=== PATIENT | female | born 1985 | race Caucasian/White ===

== ENCOUNTER 2017-07-21 04:50 | Inpatient (IN) | payer MEDICAID ==
[2017-07-21] MEDS ORDERED: Penicillin G Potassium 5 MILLUNITS in Sodium Chloride 0.9% 50 ML IV ONE (06:00)
[2017-07-21] MEDS ORDERED: Ondansetron 4 MG/2 ML SDV IVPUSH ONE (06:36)
[2017-07-21] MEDS ORDERED: Sodium Chloride 0.9% 10 ML Syringe FLUSH PRN (07:21)
[2017-07-21] MEDS ORDERED: fentaNYL 100 MCG/2 ML SDV IVPUSH PRN (07:21)
[2017-07-21] MEDS ORDERED: Acetaminophen 325 MG Tab PO PRN (07:21)
--- NOTE | 2017-07-21 07:31 | PCM.LDHP ---
L&D History of Present Illness - General Date of Service: 07/21/17 (labor) Admit Problem/Dx: Patient Status Order with Admit Dx/Problem 07/21/17 07:21 Patient Status [ADT] Routine Admission Diagnosis/Problem Admission Diagnosis/Problem Labor established Source of Information: Patient History Limitations: Reports: No Limitations - History of Present Illness Introduction:: This 32 year old who is 39 5/7 weeks gestation presented with contractions every 2-3 minutes. Had been keshia since 0200. NO SROM, is GBS positive. Staff reports she is dilated to 3 cm. complains of back labor. Labs: ABO O pos HIV neg Rubella Immune THC POS HGB 12.0 and PLT 333 Timing/Duration: Reports: minutes: (2-3) Location, : Reports: Abdomen, Lower back Quality: Reports: Pressure Severity: Moderate Improves with: Reports: None Worsens with: Reports: None - Related Data Allergies/Adverse Reactions: Allergies Allergy/AdvReac Type Severity Reaction Status Date / Time No Known Allergies Allergy Verified 04/16/16 07:43 Home Medications: Home Meds Folic Acid 1 cap PO DAILY 07/19/17 [History] Pediatric Multivit Comb No.42 [Flintstones] 1 each PO DAILY 07/19/17 [History] Past Medical History HEENT History: Reports: Allergic Rhinitis Cardiovascular History: Reports: None Respiratory History: Reports: None Gastrointestinal History: Reports: Cholelithiasis, GERD Genitourinary History: Reports: None [employer] MANAGER History: Reports: Endometriosis, Fibroids, , Other (See Below) : 2 Para: 1 LMP (Approximate): (JHOAN 07/21/17) Other OB/BYN History: IRREGULAR PERIODS Musculoskeletal History: Reports: Fibromyalgia, Other (See Below) Other Musculoskeletal History: LEFT KNEE PAIN Neurological History: Reports: None Psychiatric History: Reports: None Endocrine/Metabolic History: Reports: None Hematologic History: Reports: None Immunologic History: Reports: None Oncologic (Cancer) History: Reports: None Dermatologic History: Reports: None - Infectious Disease History Infectious Disease History: Reports: Chicken Pox - Past Surgical History Head Surgeries/Procedures: Reports: None Cardiovascular Surgical History: Reports: None Respiratory Surgical History: Reports: None GI Surgical History: Reports: Cholecystectomy, EGD Female Surgical History: Reports: None Endocrine Surgical History: Reports: None Neurological Surgical History: Reports: None Dermatological Surgical History: Reports: None Social & Family History - Family History Family Medical History: Noncontributory - Tobacco Use Smoking Status *Q: Never Smoker Second Hand Smoke Exposure: No - Caffeine Use Caffeine Use: Reports: None - Recreational Drug Use Recreational Drug Use: Yes Drug Use in Last 12 Months: Yes Recreational Drug Type: Reports: Marijuana/Hashish Recreational Drug Use Frequency: Daily H&P Review of Systems - Review of Systems: Review Of Systems: See Below General: Reports: No Symptoms HEENT: Reports: No Symptoms Pulmonary: Reports: No Symptoms Cardiovascular: Reports: No Symptoms Gastrointestinal: Reports: Nausea Genitourinary: Reports: No Symptoms Musculoskeletal: Reports: No Symptoms Skin: Reports: No Symptoms Psychiatric: Reports: No Symptoms Neurological: Reports: No Symptoms Hematologic/Lymphatic: Reports: No Symptoms Immunologic: Reports: No Symptoms L&D Exam - Exam Exam: See Below - Vital Signs Vital Signs: Last Vital Signs Temp 97.3 F 07/21/17 05:04 Pulse 100 07/21/17 05:04 Resp 16 07/21/17 05:04 BP 120/74 07/21/17 05:04 Pulse Ox 97 07/21/17 05:04 Weight: 256 lb - OB Specific Contraction Duration (sec): 50-60 Contraction Frequency (min): 2-3 Contraction Intensity: Moderate Movement: Active Heart Tones: Present Heart Tones per Min: 145 Heart Rate (FHR) Variability: Moderate (6-25 bmp) Presentation: Vertex - Barrios Score Barrios Score Cervix Position: Midposition Barrios Score Consistency: Soft Barrios Score Effacement: 51-70% Barrios Score Dilation: 3-4 cm Barrios Score Infant's Station: -1 ,0 Barrios Score Total: 9 - Exam General: Alert, Oriented HEENT: PERRLA, Conjunctiva Clear, EACs Clear, EOMI, Hearing Intact, Mucosa Moist & [place], Nares Patent, Normal Nasal Septum, Posterior Pharynx Clear, TMs Clear Neck: Supple, Trachea Midline Lungs: Clear to Auscultation, Normal Respiratory Effort Cardiovascular: Regular Rate, Regular Rhythm GI/Abdominal Exam: Normal Bowel Sounds, Soft, Non-Tender, Pelvis Stable Rectal Exam: Normal Exam Genitourinary: Cervical dilitation, Enlarged uterus Back Exam: Normal Inspection, Full Range of Motion Extremities: Normal Inspection, Normal Range of Motion, Non-Tender, No Pedal Edema, Normal Capillary Refill Skin: Warm, Dry, Intact Neurological: Cranial Nerves Intact, Reflexes Equal Bilateral Psychiatric: Alert, Normal Affect, Normal Mood - Patient Data Lab Results Last 24 hrs: Laboratory Results - last 24 hr 07/21/17 07/21/17 07/21/17 Range/Units 05:10 05:48 05:49 WBC 18.9 H (4.5-11.0) K/uL RBC 4.43 (3.30-5.50) M/uL Hgb 12.9 (12.0-15.0) g/dL Hct 38.5 (36.0-48.0) % MCV 87 (80-98) fL MCH 29 (27-31) pg MCHC 34 (32-36) % Plt Count 333 (150-400) K/uL Urine Color Yellow Urine Appearance Cloudy Urine pH 6.5 (4.5-8.0) Ur Specific [place] 1.015 (1.008-1.030) Urine Protein Negative (NEGATIVE) mg/dL Urine Glucose (UA) Normal (NEGATIVE) mg/dL Urine Ketones 15 H (NEGATIVE) mg/dL Urine Occult Blood Moderate (NEGATIVE) Urine Nitrite Negative (NEGATIVE) Urine Bilirubin Negative (NEGATIVE) Urine Urobilinogen Normal (NORMAL) mg/dL Ur Leukocyte Esterase Large (NEGATIVE) Urine RBC 0-5 (0-5) Urine WBC >100 H (0-5) Ur Epithelial Cells Moderate Amorphous Sediment Not seen Urine Bacteria Many Urine Mucus Not seen Urine Opiates Screen Negative (NEGATIVE) Ur Oxycodone Screen Negative (NEGATIVE) Urine Methadone Screen Negative (NEGATIVE) Ur Propoxyphene Screen Negative (NEGATIVE) Ur Barbiturates Screen Negative (NEGATIVE) Ur Tricyclics Screen Negative (NEGATIVE) Ur Phencyclidine Scrn Negative (NEGATIVE) Ur Amphetamine Screen Negative (NEGATIVE) U Methamphetamines Scrn Negative (NEGATIVE) Urine MDMA Screen Negative (NEGATIVE) U Benzodiazepines Scrn Negative (NEGATIVE) U Cocaine Metab Screen Negative (NEGATIVE) U Marijuana (THC) Screen Positive H (NEGATIVE) Result Diagrams: 07/21/17 05:48 - Problem List (1) Smoker SNOMED Code(s): 27193277 ICD Code: F17.200 - NICOTINE DEPENDENCE, UNSPECIFIED, UNCOMPLICATED Status : Acute Current Visit: Yes (2) Positive GBS test SNOMED Code(s): 0410400690276 ICD Code: B95.1 - STREPTOCOCCUS, GROUP B, CAUSING DISEASES CLASSD ELSWHR Status: Acute Current Visit: Yes (3) Normal labor SNOMED Code(s): 68193523 ICD Code: O80 - ENCOUNTER FOR FULL-TERM UNCOMPLICATED DELIVERY; Z37.9 - OUTCOME OF DELIVERY, UNSPECIFIED Status: Acute Current Visit: Yes (4) Obese SNOMED Code(s): 217350068 ICD Code: E66.9 - OBESITY, UNSPECIFIED Status: Chronic Current Visit: No Problem List Initiated/Reviewed/Updated: Yes Orders Last 24hrs: Active Orders 24 hr Category Date Time Status Patient Status [ADT] Routine ADT 07/21/17 07:21 Ordered Antiembolic Devices [RC] .Routine Care 07/21/17 07:23 Ordered Communication Order [RC] ASDIRECTED Care 07/21/17 07:21 Ordered Heart Tones [RC] PER UNIT ROUTINE Care 07/21/17 07:21 Ordered May Shower [RC] ASDIRECTED Care 07/21/17 07:21 Ordered Notify Provider Vital Signs [RC] PRN Care 07/21/17 07:21 Ordered Notify Provider [RC] PRN Care 07/21/17 07:21 Ordered OB Check [OM.PC] Click to Edit Care 07/21/17 05:05 Ordered Up ad Eunice [RC] ASDIRECTED Care 07/21/17 07:21 Ordered VTE/DVT Education [RC] Click to Edit Care 07/21/17 07:23 Ordered Vital Signs [RC] PER UNIT ROUTINE Care 07/21/17 07:21 Ordered Clear Liquid Diet [DIET] Diet 07/21/17 Lunch Ordered Acetaminophen [Tylenol] Med 07/21/17 07:21 Ordered 650 mg PO Q4H PRN Penicillin G Potassium [Pfizerpen] 2.5 millunits Med 07/21/17 11:00 Active Sodium Chloride 0.9% [Normal Saline] 50 ml IV Q4H Sodium Chloride 0.9% [Saline Flush] Med 07/21/17 07:21 Ordered 10 ml FLUSH ASDIRECTED PRN fentaNYL [Sublimaze] Med 07/21/17 07:21 Ordered 100 mcg IVPUSH Q1H PRN DVT/VTE Prophylaxis Reflex [OM.PC] Routine Oth 07/21/17 07:21 Ordered Saline Lock Insert [OM.PC] Routine Oth 07/21/17 07:21 Ordered Resuscitation Status Routine Resus Stat 07/21/17 07:21 Ordered Medication Orders Penicillin G Potassium 2.5 (millunits/ Sodium Chloride) 50 mls @ 100 mls/hr IV Q4H [facility] Assessment/Plan Comment:: 07/21/17 32 yr old 39 5/7 weeks, labor GBS positive, treatment started delay AROM until making cervical change Pain management per patient request THC positive, Social service referral Plan: Anticipate vaginal delivery
[2017-07-21] MEDS ORDERED: Lactated Ringers 1,000 ML IV ONE (08:14)
[2017-07-21] MEDS ORDERED: Ropivacaine 200 ML EPIDUR ONE (09:05)
[2017-07-21] MEDS ORDERED: Ropivacaine HCl/PF 200 ML ONE (09:25)
[2017-07-21] MEDS ORDERED: Penicillin G Potassium 2.5 MILLUNITS in Sodium Chloride 0.9% 50 ML IV SCH (10:00)
[2017-07-21] MEDS ORDERED: Ropivacaine 200 ML EPIDUR SCH (10:11)
[2017-07-21] MEDS ORDERED: ePHEDrine 50 MG/ML SDV IV PRN (10:11)
[2017-07-21] MEDS ORDERED: Naloxone 0.4 MG/ML SDV IVPUSH PRN ×2 (10:11→20:35)
[2017-07-21] MEDS ORDERED: diphenhydrAMINE 50 MG/ML SDV IVPUSH PRN (10:11)
--- NOTE | 2017-07-21 10:38 | ANES ---
DATE OF SERVICE: 07/21/2017 INDICATION: Lidya is a 32-year-old female patient of Kim Timmons, #[id number]. She is in prolonged stage II labor. I was requested by Kim Timmons to assess the patient for labor epidural. Upon arrival, I discussed with the patient her history as well as labs and procedure. There were no contraindications to labor epidural today, and after understanding the procedure, she was okay to proceed, and consent was received. DESCRIPTION OF PROCEDURE: I had her seated at the edge of the bed. Betadine prep x3 to the lumbar region, sterile drape was placed. A 1% lidocaine skin wheal as well as deep at the L3-L4 region. A 17-gauge Tuohy was placed to loss of resistance. Negative CSF, negative heme, negative paresthesia. Catheter was placed to 12 cm. Then, a test dose was given, and the catheter was then secured, placed her in a supine position, injected 12 mL of 0.2% ropivacaine and then began infusion of that same 0.2% ropivacaine. She tolerated the procedure quite well. Her vitals remained within normal limits. Please refer to nurse's notes for vital signs and neuro status, and upon completion, I discussed with the nurse the amount given. Thank you for the consult. Henry Proctor CRNA /[id number]
--- NOTE | 2017-07-21 10:39 | PCM.PNLD ---
Labor Progress Note - VS & Meds Vital Signs: Last Vital Signs Temp 96.9 F 07/21/17 07:21 Pulse 86 07/21/17 10:00 Resp 16 07/21/17 10:00 BP 130/68 07/21/17 10:00 Pulse Ox 95 07/21/17 10:00 Active Medications: Current Medications Acetaminophen (Tylenol) 650 mg PO Q4H PRN PRN Reason: Pain (Mild 1-3) and fever Diphenhydramine HCl (Benadryl) 25 mg IVPUSH Q6H PRN PRN Reason: ITCHING Ephedrine Sulfate (Ephedrine Sulfate) 5 - 10 mg IV ASDIRECTED PRN PRN Reason: Systolic BP less than 100 Fentanyl (Sublimaze) 100 mcg IVPUSH Q1H PRN PRN Reason: Pain (moderate 4-6) Penicillin G Potassium 2.5 (millunits/ Sodium Chloride) 50 mls @ 100 mls/hr IV Q4H JOSEPH Oxytocin/Sodium Chloride (Pitocin In Ns 20 Units/1,000 Ml) 20 unit in 1,000 mls @ 90 mls/hr IV TITRATE JOSEPH; 30 MUNITS/MIN PRN Reason: Protocol Ropivacaine (Naropin 0.2%) 200 mls @ 0 mls/hr EPIDUR ASDIRECTED JOSEPH; Titrate PRN Reason: Protocol Naloxone HCl (Narcan) 0.1 mg IVPUSH Q5M PRN PRN Reason: IF RESP RATE LESS THAN 6 Sodium Chloride (Saline Flush) 10 ml FLUSH ASDIRECTED PRN PRN Reason: Keep Vein Open Discontinued Medications Penicillin G Potassium 5 (millunits/ Sodium Chloride) 50 mls @ 100 mls/hr IV ONETIME ONE Stop: 07/21/17 06:29 Last Admin: 07/21/17 06:53 Dose: 100 mls/hr Penicillin G Potassium 2.5 (millunits/ Sodium Chloride) 50 mls @ 100 mls/hr IV Q4H JOSEPH Lactated Ringer's (Ringers, Lactated) 1,000 mls @ 999 mls/hr IV BOLUS ONE Stop: 07/21/17 09:14 Last Admin: 07/21/17 08:00 Dose: 999 mls/hr Ropivacaine (Naropin 0.2%) 200 mls @ as directed EPIDUR .STK-MED ONE Stop: 07/21/17 09:06 Ondansetron HCl (Zofran) 4 mg IVPUSH ONETIME ONE Stop: 07/21/17 06:37 Last Admin: 07/21/17 06:53 Dose: 4 mg - Uterine Contractions Uterine Monitoring Mode: External [place] Contraction Frequency (min): 2-4 Contraction Duration (sec): 40-50 Contraction Intensity: Moderate Uterine Resting Tone: Soft - Monitoring Monitor Mode: External Ultrasound Heart Rate (FHR) Baseline: 145 Heart Rate (FHR) Variability: Moderate (6-25 bmp) Accelerations: Present, 15x15 Decelerations: None Strip Review: Category I - Vaginal Exam Dilation (cm): 7-8 Effacement (Percent): 100 Station: 1 Cervical Position: Anterior Sterile Vaginal Exam Performed By: Kim Timmons Vaginal Exam Comment: AROM, clear - Labor Progress (Free Text) Labor Progress: epidural in place Nice progression since this morning Planning for vaginal delivery
[2017-07-21] MEDS: Penicillin G Potassium 2.5 MILLUNITS in Sodium Chloride 0.9% 50 ML IV SCH ×3 (10:51→20:18)
[2017-07-21] MEDS: Ondansetron 4 MG/2 ML SDV IVPUSH PRN ×2 (10:57→17:10)
[2017-07-21] MEDS ORDERED: fentaNYL 100 MCG/2 ML SDV ONE (12:33)
--- NOTE | 2017-07-21 12:54 | PCM.PNLD ---
Labor Progress Note - VS & Meds Vital Signs: Last Vital Signs Temp 96.9 F 07/21/17 07:21 Pulse 82 07/21/17 10:15 Resp 16 07/21/17 10:15 BP 122/73 07/21/17 10:15 Pulse Ox 93 L 07/21/17 10:15 Active Medications: Current Medications Acetaminophen (Tylenol) 650 mg PO Q4H PRN PRN Reason: Pain (Mild 1-3) and fever Diphenhydramine HCl (Benadryl) 25 mg IVPUSH Q6H PRN PRN Reason: ITCHING Ephedrine Sulfate (Ephedrine Sulfate) 5 - 10 mg IV ASDIRECTED PRN PRN Reason: Systolic BP less than 100 Fentanyl (Sublimaze) 100 mcg IVPUSH Q1H PRN PRN Reason: Pain (moderate 4-6) Penicillin G Potassium 2.5 (millunits/ Sodium Chloride) 50 mls @ 100 mls/hr IV Q4H JOSEPH Last Admin: 07/21/17 10:51 Dose: 100 mls/hr Oxytocin/Sodium Chloride (Pitocin In Ns 20 Units/1,000 Ml) 20 unit in 1,000 mls @ 90 mls/hr IV TITRATE JOSEPH; 30 MUNITS/MIN PRN Reason: Protocol Ropivacaine (Naropin 0.2%) 200 mls @ 0 mls/hr EPIDUR ASDIRECTED JOSEPH; Titrate PRN Reason: Protocol Naloxone HCl (Narcan) 0.1 mg IVPUSH Q5M PRN PRN Reason: IF RESP RATE LESS THAN 6 Ondansetron HCl (Zofran) 4 mg IVPUSH Q4H PRN PRN Reason: Nausea Last Admin: 07/21/17 10:57 Dose: 4 mg Sodium Chloride (Saline Flush) 10 ml FLUSH ASDIRECTED PRN PRN Reason: Keep Vein Open Discontinued Medications Fentanyl (Sublimaze) Confirm Administered Dose 100 mcg .ROUTE .STK-MED ONE Stop: 07/21/17 12:34 Penicillin G Potassium 5 (millunits/ Sodium Chloride) 50 mls @ 100 mls/hr IV ONETIME ONE Stop: 07/21/17 06:29 Last Admin: 07/21/17 06:53 Dose: 100 mls/hr Penicillin G Potassium 2.5 (millunits/ Sodium Chloride) 50 mls @ 100 mls/hr IV Q4H JOSEPH Lactated Ringer's (Ringers, Lactated) 1,000 mls @ 999 mls/hr IV BOLUS ONE Stop: 07/21/17 09:14 Last Admin: 07/21/17 08:00 Dose: 999 mls/hr Ropivacaine (Naropin 0.2%) 200 mls @ as directed EPIDUR .STK-MED ONE Stop: 07/21/17 09:06 Ropivacaine (Naropin 0.2%) Confirm Administered Dose 200 mls @ as directed .ROUTE .STK-MED ONE Stop: 07/21/17 09:26 Ondansetron HCl (Zofran) 4 mg IVPUSH ONETIME ONE Stop: 07/21/17 06:37 Last Admin: 07/21/17 06:53 Dose: 4 mg - Uterine Contractions Uterine Monitoring Mode: External [place] Contraction Frequency (min): 1-2 Contraction Duration (sec): 40-70 Contraction Intensity: Strong Uterine Resting Tone: Soft - Monitoring Monitor Mode: External Ultrasound Heart Rate (FHR) Baseline: 145 Heart Rate (FHR) Variability: Moderate (6-25 bmp) Accelerations: Present, 15x15 Decelerations: None Strip Review: Category I - Vaginal Exam Dilation (cm): 8-9 Effacement (Percent): 100 Station: 1 Cervical Position: Anterior Sterile Vaginal Exam Performed By: Kim Timmons Vaginal Exam Comment: Baby not descending as one would expect, more dilation then before, bloody show now, slow progress - Labor Progress (Free Text) Labor Progress: epidural bolus pitocin augmentation. Using peanut ball to helpful help with descent
[2017-07-21] MEDS ORDERED: diphenhydrAMINE 25 MG Cap PO ONE (14:05)
--- NOTE | 2017-07-21 14:08 | PCM.PNLD ---
Labor Progress Note - VS & Meds Vital Signs: Last Vital Signs Temp 96.9 F 07/21/17 07:21 Pulse 82 07/21/17 10:15 Resp 16 07/21/17 10:15 BP 122/73 07/21/17 10:15 Pulse Ox 93 L 07/21/17 10:15 Active Medications: Current Medications Acetaminophen (Tylenol) 650 mg PO Q4H PRN PRN Reason: Pain (Mild 1-3) and fever Diphenhydramine HCl (Benadryl) 25 mg IVPUSH Q6H PRN PRN Reason: ITCHING Ephedrine Sulfate (Ephedrine Sulfate) 5 - 10 mg IV ASDIRECTED PRN PRN Reason: Systolic BP less than 100 Fentanyl (Sublimaze) 100 mcg IVPUSH Q1H PRN PRN Reason: Pain (moderate 4-6) Penicillin G Potassium 2.5 (millunits/ Sodium Chloride) 50 mls @ 100 mls/hr IV Q4H JOSEPH Last Admin: 07/21/17 10:51 Dose: 100 mls/hr Oxytocin/Sodium Chloride (Pitocin In Ns 20 Units/1,000 Ml) 20 unit in 1,000 mls @ 90 mls/hr IV TITRATE JOSEPH; 30 MUNITS/MIN PRN Reason: Protocol Ropivacaine (Naropin 0.2%) 200 mls @ 0 mls/hr EPIDUR ASDIRECTED JOSEPH; Titrate PRN Reason: Protocol Naloxone HCl (Narcan) 0.1 mg IVPUSH Q5M PRN PRN Reason: IF RESP RATE LESS THAN 6 Ondansetron HCl (Zofran) 4 mg IVPUSH Q4H PRN PRN Reason: Nausea Last Admin: 07/21/17 10:57 Dose: 4 mg Sodium Chloride (Saline Flush) 10 ml FLUSH ASDIRECTED PRN PRN Reason: Keep Vein Open Discontinued Medications Fentanyl (Sublimaze) Confirm Administered Dose 100 mcg .ROUTE .STK-MED ONE Stop: 07/21/17 12:34 Penicillin G Potassium 5 (millunits/ Sodium Chloride) 50 mls @ 100 mls/hr IV ONETIME ONE Stop: 07/21/17 06:29 Last Admin: 07/21/17 06:53 Dose: 100 mls/hr Penicillin G Potassium 2.5 (millunits/ Sodium Chloride) 50 mls @ 100 mls/hr IV Q4H JOSEPH Lactated Ringer's (Ringers, Lactated) 1,000 mls @ 999 mls/hr IV BOLUS ONE Stop: 07/21/17 09:14 Last Admin: 07/21/17 08:00 Dose: 999 mls/hr Ropivacaine (Naropin 0.2%) 200 mls @ as directed EPIDUR .STK-MED ONE Stop: 07/21/17 09:06 Ropivacaine (Naropin 0.2%) Confirm Administered Dose 200 mls @ as directed .ROUTE .STK-MED ONE Stop: 07/21/17 09:26 Ondansetron HCl (Zofran) 4 mg IVPUSH ONETIME ONE Stop: 07/21/17 06:37 Last Admin: 07/21/17 06:53 Dose: 4 mg - Uterine Contractions Uterine Monitoring Mode: External [place] Contraction Frequency (min): 1.5-2 Contraction Duration (sec): 50-70 Contraction Intensity: Strong Uterine Resting Tone: Soft - Monitoring Monitor Mode: External Ultrasound Heart Rate (FHR) Baseline: 145 Heart Rate (FHR) Variability: Moderate (6-25 bmp) Accelerations: Present, 15x15 Decelerations: None Strip Review: Category I - Vaginal Exam Dilation (cm): 7-8 Effacement (Percent): 90 Station: 1 Cervical Position: Midposition Sterile Vaginal Exam Performed By: Kim Timmons Vaginal Exam Comment: Baby not descending as one would expect, more dilation then before, bloody show now, slow progress - Labor Progress (Free Text) Labor Progress: hasn't had cervical change for 4 hours. Pain not well managed. Epidural seems to be not as effect as one would like. Anesthesia have been called to assess. Currently on cervical exam cervix is swollen, 25 mg po Benadryl given.
--- NOTE | 2017-07-21 15:47 | ANES ---
DATE OF SERVICE: 07/21/2017 INDICATION: Lidya is a 32-year-old female patient of Kimswapna Timmons, #[id number]. I placed an epidural in this patient at approximately 9 o'clock this morning and initially had relief, progressively throughout the afternoon as decreasing relief. One of my partners, bolused with ropivacaine at approximately 12:30. I did receive a call at approximately 2 o'clock that epidural bolus did not work and that she is having continued pain. By the time I was able to see the patient at 1430 hours, I found the patient in significant discomfort. I assessed the catheter, it seemed to be secure in the place that I had it prior to. We discussed options and decided to remove the catheter and repeat the epidural. The catheter was removed and completely intact. DESCRIPTION OF PROCEDURE: I had her seated at the edge of the bed. Betadine prep x3 to lumbar region. Sterile drape was placed, 1% lidocaine skin wheal as well as deep at the L3- L4 region; a 17-gauge Tuohy needle was placed to loss of resistance. Negative CSF, negative heme, negative paresthesia. I inserted a catheter at 15 cm at the skin. I removed the needle, completed test dose in the catheter as before, 3 mL of 1.5% lidocaine with 1:200,000 epinephrine, negative sequelae. I secured the catheter to her back, infused 10 mL 0.2% ropivacaine and then began an infusion at 12 mL an hour of that same 0.2% ropivacaine. She tolerated the procedure quite well. Vital signs remained within normal limits throughout the procedure as well as her neurological status. Please refer to nurse's notes for vital signs and neuro status, I reported off to the nurse. Henry Proctor CRNA /[id number]
--- NOTE | 2017-07-21 17:39 | PCM.PNLD ---
Labor Progress Note - VS & Meds Vital Signs: Last Vital Signs Temp 96.1 F 07/21/17 14:50 Pulse 102 H 07/21/17 16:30 Resp 16 07/21/17 16:30 BP 103/43 L 07/21/17 16:30 Pulse Ox 97 07/21/17 16:30 Active Medications: Current Medications Acetaminophen (Tylenol) 650 mg PO Q4H PRN PRN Reason: Pain (Mild 1-3) and fever Diphenhydramine HCl (Benadryl) 25 mg IVPUSH Q6H PRN PRN Reason: ITCHING Ephedrine Sulfate (Ephedrine Sulfate) 5 - 10 mg IV ASDIRECTED PRN PRN Reason: Systolic BP less than 100 Fentanyl (Sublimaze) 100 mcg IVPUSH Q1H PRN PRN Reason: Pain (moderate 4-6) Penicillin G Potassium 2.5 (millunits/ Sodium Chloride) 50 mls @ 100 mls/hr IV Q4H JOSEPH Last Admin: 07/21/17 15:11 Dose: 100 mls/hr Oxytocin/Sodium Chloride (Pitocin In Ns 20 Units/1,000 Ml) 20 unit in 1,000 mls @ 90 mls/hr IV TITRATE JOSEPH; 30 MUNITS/MIN PRN Reason: Protocol Ropivacaine (Naropin 0.2%) 200 mls @ 0 mls/hr EPIDUR ASDIRECTED JOSEPH; Titrate PRN Reason: Protocol Last Admin: 07/21/17 09:10 Dose: 12 mls/hr, 12 mls/hr Naloxone HCl (Narcan) 0.1 mg IVPUSH Q5M PRN PRN Reason: IF RESP RATE LESS THAN 6 Ondansetron HCl (Zofran) 4 mg IVPUSH Q4H PRN PRN Reason: Nausea Last Admin: 07/21/17 17:10 Dose: 4 mg Sodium Chloride (Saline Flush) 10 ml FLUSH ASDIRECTED PRN PRN Reason: Keep Vein Open Discontinued Medications Diphenhydramine HCl (Benadryl) 25 mg PO ONETIME ONE Stop: 07/21/17 14:06 Last Admin: 07/21/17 14:18 Dose: 25 mg Fentanyl (Sublimaze) Confirm Administered Dose 100 mcg .ROUTE .STK-MED ONE Stop: 07/21/17 12:34 Penicillin G Potassium 5 (millunits/ Sodium Chloride) 50 mls @ 100 mls/hr IV ONETIME ONE Stop: 07/21/17 06:29 Last Admin: 07/21/17 06:53 Dose: 100 mls/hr Penicillin G Potassium 2.5 (millunits/ Sodium Chloride) 50 mls @ 100 mls/hr IV Q4H JOSEPH Lactated Ringer's (Ringers, Lactated) 1,000 mls @ 999 mls/hr IV BOLUS ONE Stop: 07/21/17 09:14 Last Admin: 07/21/17 08:00 Dose: 999 mls/hr Ropivacaine (Naropin 0.2%) 200 mls @ as directed EPIDUR .STK-MED ONE Stop: 07/21/17 09:06 Ropivacaine (Naropin 0.2%) Confirm Administered Dose 200 mls @ as directed .ROUTE .STK-MED ONE Stop: 07/21/17 09:26 Ondansetron HCl (Zofran) 4 mg IVPUSH ONETIME ONE Stop: 07/21/17 06:37 Last Admin: 07/21/17 06:53 Dose: 4 mg - Uterine Contractions Uterine Monitoring Mode: External [place] Contraction Frequency (min): 1-2 Contraction Duration (sec): 50-80 Contraction Intensity: Strong Uterine Resting Tone: Soft - Monitoring Monitor Mode: External Ultrasound Heart Rate (FHR) Baseline: 145 Heart Rate (FHR) Variability: Moderate (6-25 bmp) Accelerations: Present, 15x15 Decelerations: None Strip Review: Category I - Vaginal Exam Dilation (cm): 9.5 Effacement (Percent): 100 Station: 1 Cervical Position: Anterior Sterile Vaginal Exam Performed By: Kim Timmons Vaginal Exam Comment: No change and baby hasn't descended - Labor Progress (Free Text) Labor Progress: Arrested labor, no significant cervical change since 1030 this morning. Pain management has been an issue, good epidural placement but continues to have pain. Also has severe reflux Plan Proceed to c section for arrested first stage of labor. Discussed options and concerns with aptient and family, they are agreeable
[2017-07-21] MEDS ORDERED: cefOXitin 1 GM Vial ONE (17:45)
[2017-07-21] MEDS: Oxytocin 10 Units/1 ML SDV ONE ×2 (18:05→18:40)
[2017-07-21] MEDS ORDERED: Oxytocin 10 Units/1 ML SDV ONE (18:20)
[2017-07-21] MEDS ORDERED: Lactated Ringers 1,000 ML ONE (18:35)
[2017-07-21] MEDS ORDERED: Sodium Chloride 0.9% 10 ML ONE (18:41)
[2017-07-21] MEDS ORDERED: cefOXitin 2 GM Vial ONE (18:41)
[2017-07-21] MEDS ORDERED: Ondansetron 4 MG/2 ML SDV ONE (19:08)
[2017-07-21] MEDS ORDERED: HYDROmorphone/Normal Saline 15 MG/30 ML PCA IV PRN (20:35)
[2017-07-21] MEDS ORDERED: hydrOXYzine HCl 100 MG/2 ML SDV IM PRN (20:38)
[2017-07-21] MEDS: Dextrose 5%-Lactated Ringers 1,000 ML IV SCH (22:00)
[2017-07-21] MEDS: Acetaminophen 500 MG Tab PO SCH (23:49)
[2017-07-21] MEDS: cefOXitin 2 GM in Sodium Chloride 0.9% 50 ML IV SCH (23:49)
[2017-07-22] MEDS: Ondansetron 4 MG/2 ML SDV IVPUSH PRN ×2 (00:59→09:08)
[2017-07-22] MEDS: Penicillin G Potassium 2.5 MILLUNITS in Sodium Chloride 0.9% 50 ML IV SCH (01:24)
[2017-07-22] MEDS: cefOXitin 2 GM in Sodium Chloride 0.9% 50 ML IV SCH ×3 (03:58→16:18)
[2017-07-22] MEDS: Acetaminophen 500 MG Tab PO SCH ×4 (03:59→22:04)
[2017-07-22] MEDS: Dextrose 5%-Lactated Ringers 1,000 ML IV SCH (05:14)
[2017-07-22] MEDS ORDERED: Naloxone 0.4 MG/ML SDV IV PRN (07:21)
[2017-07-22] MEDS ORDERED: Dextrose 5%-Lactated Ringers 1,000 ML IV SCH (07:30)
[2017-07-22] MEDS: Docusate Sodium 100 MG Cap PO SCH ×2 (09:00→20:37)
[2017-07-22] MEDS: Ibuprofen 600 MG Tab PO PRN ×2 (11:04→23:44)
[2017-07-22] MEDS ORDERED: Acetaminophen/oxyCODONE 325-5 MG Tab PO PRN (20:01)
[2017-07-23] MEDS: oxyCODONE 5 MG Tab PO PRN ×6 (01:13→23:31)
[2017-07-23] MEDS: Acetaminophen 500 MG Tab PO SCH ×4 (05:43→22:03)
[2017-07-23] MEDS ORDERED: Magnesium Hydroxide 400 MG/5 ML Susp 30 ML Cup PO ONE (06:44)
[2017-07-23] MEDS ORDERED: Bisacodyl 5 MG Tab PO ONE (06:44)
[2017-07-23] MEDS: Docusate Sodium 100 MG Cap PO SCH ×2 (08:00→22:03)
--- NOTE | 2017-07-23 08:07 | PN ---
DATE OF SERVICE: 07/23/2017 SUBJECTIVE: Lidya is postop day #2 following a section. She states her pain is controlled. She has been up ambulating, has no other questions or concerns. REVIEW OF SYSTEMS: Remainder of review of systems negative for any pertinent positives and negatives. OBJECTIVE: GENERAL: Lidya Godwin is a 32-year-old female. She is alert and oriented, holding the baby. VITAL SIGNS: TPR 97.8, 73, 16. Blood pressure 120/68. HEENT: Negative. NECK: Supple. HEART: Regular rate and rhythm. LUNGS: Clear. ABDOMEN: Dressing dry and intact. Abdominal binder is on. EXTREMITIES: Without peripheral edema and no calf tenderness. ASSESSMENT: section for term with arrested labor, date 07/21/2017. PLAN: 1. May shower. 2. Milk of Magnesia 30 mL now. 3. Dulcolax 2 tabs 1 hour after Milk of Mag. 4. Discontinue Accu-Cheks. 5. Good pulmonary toilet. 6. Plan discharge in a.. Mira Coyle PA-C /[id number]
[2017-07-23] MEDS: Ibuprofen 600 MG Tab PO PRN ×2 (14:20→20:26)
[2017-07-24] MEDS: oxyCODONE 5 MG Tab PO PRN ×2 (03:43→08:10)
[2017-07-24] MEDS: Acetaminophen 500 MG Tab PO SCH ×2 (03:43→10:13)
[2017-07-24] MEDS: Ibuprofen 600 MG Tab PO PRN (05:47)
[2017-07-24 07:38] VITALS: BP 111/60
[2017-07-24] MEDS: Docusate Sodium 100 MG Cap PO SCH (08:22)
--- NOTE | 2017-07-24 08:43 | DISCH ---
ADMISSION DIAGNOSES: 1. Term . 2. Nicotine addiction. 3. Positive GBS test. 4. Dysthymic disorder. 5. GERD. 6. Obese. DISCHARGE DIAGNOSIS: section for term with arrest of labor, date 07/21/2017. HISTORY: Lidya Godwin is a 32-year-old female who presented to [facility] of [facility] and was in labor. She did not progress. After preoperative evaluation and discussion of possible surgical risks and complications, she wished to proceed with surgical procedure. HOSPITAL COURSE: Lidya had her with delivery of a viable baby boy on 07/21/2017. She had no complications. On postop day #1, she was started on a regular diet. IV rate was decreased. On postop day #2, she was able to shower. She was given bowel stimulation and on postop day #3, her pain was controlled. Activity was good. She was able to be discharged to home. PHYSICAL EXAMINATION: GENERAL: Lidya Godwin is a 32-year-old female. VITAL SIGNS: Height is 5 feet, 6.93 inches. Weight is 256 pounds. TPR 97.8, 67, 18, blood pressure 111/60. HEENT: Negative. NECK: Supple. HEART: Regular rate and rhythm. LUNGS: Clear. ABDOMEN: Soft, nontender. Aquacel dressing remains on and will be removed by nursing staff. If Steri-Strips do come off, they will be replaced. EXTREMITIES: Negative for any calf tenderness. DISPOSITION: Discharged to home. CONDITION: Stable and improving. FOLLOWUP APPOINTMENT: Mira Coyle PA-C, on 08/04/2017 at 11:00 a.m. MEDICATIONS: 1. New prescriptions; Tylenol Extra Strength 1000 mg q.6 hours, scheduled every 6 hours for one week, then p.r.n. 2. Colace 100 mg oral twice daily #60. 3. Ibuprofen 600 mg oral q.6 hours #40. 4. Milk of Mag 2 were sent home with patient to take one daily p.r.n. constipation. 5. Oxycodone 5 mg take 1-2 every 4 hours p.r.n. pain #30. 6. She is to resume her home medication of folic acid 1 daily and pediatric multivitamin Flintstones one daily. DISCHARGE DIET: Usual diet as tolerated, drink 8-10 glasses of water a day. ACTIVITY AND DISCHARGE INSTRUCTIONS: No lifting greater than baby and car seat for 6 weeks[address] Driving, do not drive for 2 weeks or while on pain medication. Shower/bathing, may shower. Notify provider if any fever, increased pain, nausea, and/or vomiting. Keep site clean and dry. Use incentive spirometer 10 times every hour while awake.
[2017-07-24] MEDS ORDERED: Magnesium Hydroxide 400 MG/5 ML Susp 30 ML Cup PO ONE (09:00)
--- NOTE | 2017-07-24 12:55 | PN ---
DATE OF SERVICE: 07/22/2017 The patient has been afebrile with stable vital signs. A single blood sugar obtained overnight was 105. We will check a couple more. If they are not that significantly elevated, we will discontinue the Accu-Cheks. Otherwise, urine output has been good. Labs look satisfactory with hemoglobin stable at 11.3. The plan will be to back down the IV rate. We will begin a full liquid diet and advance to regular as tolerated. Discontinue Mijares catheter, add some Colace for stool softener, and otherwise maximize activity and work with pulmonary toilet. Conrad Sierra MD /[id number]
--- NOTE | 2017-07-26 21:33 | OR ---
DATE OF PROCEDURE: 07/21/2017 PREOPERATIVE DIAGNOSIS: Term with failure to progress. POSTOPERATIVE DIAGNOSIS: Term with failure to progress. OPERATIVE PROCEDURE: section (99548). ANESTHESIA: Epidural. BEHAVIORAL SPECIALIST: Kim Timmons CNM INDICATION FOR PROCEDURE: This is a 32-year-old presenting in active labor at this point. She initially progressed up to dilation of 8 cm around 9 o'clock, but since that time has not progressed to any further extent. The plan at this point is to proceed with a section. Potential risks of the procedure including bleeding, infection, injury to mother and/or baby as well as the remote possibility of cardiopulmonary, septic, or hemorrhagic complications leading to were discussed, and the patient wishes to proceed. DETAILS OF PROCEDURE: The patient was taken to the operating room, and after spinal anesthetic was placed, she was positioned with a roll underneath the right hip. A Mijares catheter had been inserted, and the abdomen prepped and draped. A transverse Pfannenstiel incision was made and carried down through the skin and subcutaneous tissue, and through the rectus sheath. Subrectus sheath flaps were then raised superiorly and inferiorly, and the midline peritoneum divided. Peritoneal reflection of the bladder on uterus was then divided and the bladder reflected downward. A transverse lower uterine segment incision was made and a viable male was delivered through vertex presentation. The position of the baby was occiput posterior, accounting for the failure to progress. The cord was clamped and cut and routine care given off the field per Kim Timmons. IV and intrauterine oxytocin was given along with IV and good uterine contractions were noted. The placental delivery was unremarkable. The uterus was then closed with 2 layers of 2-0 Vicryl stitch as was the peritoneal reflection of the bladder on the uterus. Midline peritoneum and anterior rectus sheath were then both closed with #2 Vicryl stitch, and the skin closed with a 4-0 Vicryl subcuticular stitch. Dressing was applied. The patient was taken to the recovery room in a satisfactory condition. There were no evident complications. Conrad Sierra MD /[id number]
== END 2017-07-24 11:27 | disposition home or self-care (01) | DRG 765 ==
LOC: JP.OBCHECK 04:50 → JP.OB 05:50 → OBSVTOIN 18:38 → JP.MS 19:40
PROVIDERS: ADMIT Nurse Practitioner Family; ATTEND Surgery
PROC: 10D00Z1 Extraction of Products of Conception, Low, Open Approach (ICD-10-PCS; principal; 2017-07-21)
PROC: 10907ZC Drainage of Amniotic Fluid, Therapeutic from Products of Conception, Via Natural or Artificial Opening (ICD-10-PCS; 2017-07-21)
PROC: 00HU33Z Insertion of Infusion Device into Spinal Canal, Percutaneous Approach (ICD-10-PCS; 2017-07-21)
PROC: 00HU33Z Insertion of Infusion Device into Spinal Canal, Percutaneous Approach (ICD-10-PCS; 2017-07-21)
DX: O62.2 Other uterine inertia (principal); O99.324 Drug use complicating childbirth; O99.824 Streptococcus B carrier state complicating childbirth; F12.90 Cannabis use, unspecified, uncomplicated; O99.334 Smoking (tobacco) complicating childbirth; O99.214 Obesity complicating childbirth; O99.62 Diseases of the digestive system complicating childbirth; O99.344 Other mental disorders complicating childbirth; Z3A.39 39 weeks gestation of pregnancy; Z37.0 Single live birth; K21.9 Gastro-esophageal reflux disease without esophagitis; F32.9 Major depressive disorder, single episode, unspecified; O64.0XX0 Obstructed labor due to incomplete rotation of fetal head, not applicable or unspecified
CPT/HCPCS: 36415; 59409; 80305; 81001; 82962; 85027; 88307; 94762; 99211; A9270-GY; J0694; J1170; J2405; J2540; J2590; J2795; J3010; J3410; J7042; J7050; J7120

== ENCOUNTER 2017-09-18 07:54 | Day surgery (SDC) | payer MEDICAID ==
[2017-09-18] MEDS ORDERED: Propofol 200 MG/20 ML SDV ONE (08:06)
[2017-09-18] MEDS ORDERED: Midazolam 1 MG/ML 2 ML SDV ONE (08:06)
[2017-09-18] MEDS ORDERED: fentaNYL 100 MCG/2 ML SDV ONE (08:06)
[2017-09-18] MEDS ORDERED: Sodium Chloride 0.9% 1,000 ML IV SCH (08:30)
[2017-09-18 10:43] VITALS: BP 100/64
--- NOTE | 2017-09-19 08:25 | OR ---
DATE OF PROCEDURE: 09/18/2017 PROCEDURE: EGD. FINDINGS: Inflammation consistent with reflux at the GE junction. PATHOLOGY: Biopsy at GE junction. COMPLICATIONS: None. PROOF SORTER: None. ANESTHESIA: MAC. PREOPERATIVE DIAGNOSIS: Epigastric pain. POSTOPERATIVE DIAGNOSIS: Epigastric pain. RISKS: Risks, benefits, alternatives, and limitations including, but not limited to infection, bleeding, and perforation. PROCEDURE IN DETAIL: The patient was placed in left lateral decubitus position. EGD scope was introduced and advanced atraumatically to the second part of the duodenum. No ulceration. On retroflexed, no hiatal hernia. Inflammation at GE junction consistent with reflux disease. This was biopsied in all 4 quadrants. No other abnormalities noted in the stomach. No ulcers. No gastritis. The esophagus was normal. The patient tolerated the procedure well. Samy Márquez MD /[id number]
== END 2017-09-18 10:55 | disposition home or self-care (01) ==
LOC: JP.SDS 07:54
PROVIDERS: ATTEND Surgery
DX: R10.13 Epigastric pain (principal); K21.9 Gastro-esophageal reflux disease without esophagitis; F17.200 Nicotine dependence, unspecified, uncomplicated
CPT/HCPCS: 43239; J2704; J3010; J7040; 88305; J2250

== ENCOUNTER 2017-10-14 08:55 | Day surgery (SDC) | payer MEDICAID ==
[2017-10-14] MEDS ORDERED: Sodium Chloride 0.9% 1,000 ML IV SCH (09:30)
[2017-10-14] MEDS ORDERED: Midazolam 1 MG/ML 2 ML SDV ONE (09:53)
[2017-10-14] MEDS ORDERED: fentaNYL 100 MCG/2 ML SDV ONE (09:53)
[2017-10-14] MEDS ORDERED: Propofol 200 MG/20 ML SDV ONE ×2 (09:54→10:12)
[2017-10-14 11:52] VITALS: BP 113/66
--- NOTE | 2017-10-14 13:07 | OR ---
DATE OF PROCEDURE: 10/14/2017 PROCEDURE: Placement of Quinn pH monitor. COMPLICATIONS: None. FINAL ASSEMBLY AND PACKING SUPERVISOR: None. ANESTHESIA: MAC. PREOPERATIVE DIAGNOSIS: Gastroesophageal reflux disease. POSTOPERATIVE DIAGNOSIS: Gastroesophageal reflux disease. RISKS: Risks, benefits, alternatives, and limitations including, but not limited to infection, bleeding, and perforation along with epigastric pain were explained to the patient, who wished to proceed. PROCEDURE IN DETAIL: The patient was placed in left lateral decubitus position. The EGD scope was introduced and advanced atraumatically in the stomach. The Z-line was measured at 34 cm and measuring 6 cm proximal to this, the pH probe would be placed at that location. The scope was then removed. The pH probe was advanced with the device contacting the tongue. This was gently advanced without resistance. Once in place, vacuum was applied. The safety catch was removed. The button was flipped, then fired, and twisted. The carrier was removed without any abnormality. The scope was introduced and correct placement was noted. The procedure was completed. The patient tolerated the procedure well. Samy Márquez MD /[id number]
== END 2017-10-14 12:00 | disposition home or self-care (01) ==
LOC: JP.SDS 08:55
PROVIDERS: ATTEND Surgery
DX: K21.9 Gastro-esophageal reflux disease without esophagitis (principal); F17.210 Nicotine dependence, cigarettes, uncomplicated; E66.9 Obesity, unspecified
CPT/HCPCS: 43235; 81025; J2250; J2704; J3010

== ENCOUNTER 2017-11-13 20:27 | Inpatient (IN) | payer MEDICAID ==
[2017-11-13] MEDS ORDERED: HYDROmorphone 0.5 MG/0.5 ML Syringe IM ONE (20:28)
[2017-11-13] MEDS ORDERED: Ondansetron 4 MG/2 ML SDV IVPUSH ONE (20:58)
[2017-11-13] MEDS ORDERED: HYDROmorphone 0.5 MG/0.5 ML Syringe IVPUSH ONE (20:59)
[2017-11-13] MEDS ORDERED: Sodium Chloride 0.9% 1,000 ML IV SCH (21:00)
--- NOTE | 2017-11-13 21:02 | EDM.PDOC ---
ED HPI GENERAL MEDICAL PROBLEM - General Chief Complaint: Abdominal Pain Stated Complaint: RIGHT LOWER ABDOMINAL PAIN Time Seen by Provider: 11/13/17 20:59 Source of Information: Reports: Patient History Limitations: Reports: No Limitations - History of Present Illness INITIAL COMMENTS - FREE TEXT/NARRATIVE: pt arrived with severe rt lower abdomanal pain. this started about noon today and has gotten progessively worse. She has vomited 4 times. She has had 2 loose stools. She has had bad cramps. Onset: Today Duration: Hour(s): Location: Reports: Abdomen Associated Symptoms: Reports: Fever/Chills, Nausea/Vomiting Right Lower Abdomen Pain Score (Numeric/FACES): 9 - Related Data Allergies Allergy/AdvReac Type Severity Reaction Status Date / Time No Known Allergies Allergy Verified 11/13/17 20:47 Home Meds: Home Meds Norethindrone 0.35 mg PO DAILY 09/16/17 [History] Past Medical History HEENT History: Reports: Allergic Rhinitis, Epistaxis Cardiovascular History: Reports: Heart Murmur, Other (See Below) Other Cardiovascular History: "slight heart murmur during " Respiratory History: Reports: None Gastrointestinal History: Reports: Cholelithiasis, GERD Genitourinary History: Reports: None WHIP OPERATOR History: Reports: Endometriosis, Fibroids, , Other (See Below) Other WHIP OPERATOR History: IRREGULAR PERIODS Musculoskeletal History: Reports: Fibromyalgia, Other (See Below) Other Musculoskeletal History: LEFT KNEE PAIN Neurological History: Reports: None Psychiatric History: Reports: None Endocrine/Metabolic History: Reports: Obesity/BMI 30+ Hematologic History: Reports: None Immunologic History: Reports: None Oncologic (Cancer) History: Reports: None Dermatologic History: Reports: None - Infectious Disease History Infectious Disease History: Reports: Chicken Pox - Past Surgical History Head Surgeries/Procedures: Reports: None Respiratory Surgical History: Reports: None GI Surgical History: Reports: Cholecystectomy, EGD Female Surgical History: Reports: Section Neurological Surgical History: Reports: None Musculoskeletal Surgical History: Reports: Arthroscopic Knee Dermatological Surgical History: Reports: None Social & Family History - Family History Family Medical History: Noncontributory - Tobacco Use Smoking Status *Q: Current Every Day Smoker Years of Tobacco use: 10 Packs/Tins Daily: 0.5 - Caffeine Use Caffeine Use: Reports: None - Recreational Drug Use Recreational Drug Use: No ED ROS GENERAL - Review of Systems Review Of Systems: See Below Constitutional: Reports: Chills, Malaise, Weakness, Diaphoresis HEENT: Reports: No Symptoms Respiratory: Reports: No Symptoms Cardiovascular: Reports: No Symptoms Endocrine: Reports: No Symptoms GI/Abdominal: Reports: Abdominal Pain, Diarrhea, Nausea, Vomiting : Reports: No Symptoms Musculoskeletal: Reports: No Symptoms Skin: Reports: No Symptoms Neurological: Reports: No Symptoms ED EXAM, GI/ABD - Physical Exam Exam: See Below Text/Narrative:: pt arrived with marked pain in the rt lower abdoman. She has vomited a number of times today. She has had some chills. Exam Limited By: No Limitations General Appearance: Alert, Anxious, Moderate Distress Eyes: Bilateral: Normal Appearance, EOMI Ears: Normal TMs Nose: Normal Inspection Throat/Mouth: Normal Inspection Head: Atraumatic Neck: Normal Inspection Respiratory/Chest: No Respiratory Distress Cardiovascular: Regular Rate, Rhythm GI/Abdominal Exam: Guarding, Tender (Female) Exam: Deferred Rectal (Female) Exam: Deferred Back Exam: Normal Inspection Extremities: Normal Inspection Neurological: Alert, Oriented, Normal Cognition Course - Vital Signs Last Recorded V/S: Last Vital Signs Temp 36.7 C 11/14/17 13:53 Pulse 87 11/14/17 13:53 Resp 16 11/14/17 13:53 BP 102/62 11/14/17 13:53 Pulse Ox 96 11/14/17 13:53 - Orders/Labs/Meds Labs: Laboratory Tests 11/13/17 11/13/17 11/13/17 Range/Units 20:54 20:54 20:54 WBC 20.9 H (4.5-11.0) K/uL RBC 4.78 (3.30-5.50) M/uL Hgb 14.3 D (12.0-15.0) g/dL Hct 42.1 (36.0-48.0) % MCV 88 (80-98) fL MCH 30 (27-31) pg MCHC 34 (32-36) % Plt Count 387 (150-400) K/uL Neut % (Auto) 88 H (36-66) % Lymph % (Auto) 6 L (24-44) % [place] % (Auto) 5 (2-6) % Eos % (Auto) 1 L (2-4) % Baso % (Auto) 0 (0-1) % Sodium 135 L (140-148) mmol/L Potassium 4.0 (3.6-5.2) mmol/L Chloride 100 (100-108) mmol/L Carbon Dioxide 24 (21-32) mmol/L Anion Gap 15.0 H (5.0-14.0) mmol/L BUN 9 (7-18) mg/dL Creatinine 0.7 (0.6-1.0) mg/dL Est Cr Clr Drug Dosing 114.28 mL/min Estimated GFR (MDRD) > 60 (>60) Glucose 111 H (74-106) mg/dL Calcium 9.1 (8.5-10.1) mg/dL Total Bilirubin 0.7 D (0.2-1.0) mg/dL AST 16 (15-37) U/L ALT 31 (12-78) U/L Alkaline Phosphatase 105 (46-116) U/L C-Reactive Protein 1.00 H (0.0-0.3) mg/dL Total Protein 7.7 (6.4-8.2) g/dL Albumin 4.0 (3.4-5.0) g/dL Globulin 3.7 H (2.3-3.5) g/dL Albumin/Globulin Ratio 1.1 L (1.2-2.2) Meds: Medications Discontinued Medications Generic Name Dose Route Start Last Admin Trade Name Freq PRN Reason Stop Dose Admin Hydrocodone Bitart/Acetaminophen 1 - 2 tab 11/14/17 13:08 Meridian 325-5 Mg PO Q4H PRN Pain Bupivacaine HCl Confirm 11/14/17 07:08 11/14/17 11:03 Marcaine 0.5% Administered 11/14/17 07:09 40 ml Dose Administration 50 ml .ROUTE .STK-MED ONE Dexamethasone Confirm 11/14/17 07:20 Dexamethasone Administered 11/14/17 07:21 Dose 4 mg .ROUTE .STK-MED ONE Diphenhydramine HCl 25 - 50 mg 11/13/17 23:06 Benadryl IVPUSH Q4H PRN Itching Diphenhydramine HCl 25 - 50 mg 11/13/17 23:07 Benadryl PO Q4H PRN Itching Fentanyl 10 - 30 mcg 11/13/17 23:10 11/13/17 23:41 Sublimaze IVPUSH 30 mcg Q1H PRN Administration Pain (severe 7-10) Fentanyl Confirm 11/14/17 07:19 Sublimaze Administered 11/14/17 07:20 Dose 250 mcg .ROUTE .STK-MED ONE Glycopyrrolate Confirm 11/14/17 07:20 Robinul Administered 11/14/17 07:21 Dose 1 mg .ROUTE .STK-MED ONE Hydromorphone HCl 0.5 mg 11/13/17 20:28 11/13/17 21:11 Dilaudid IM 11/13/17 20:29 0.5 mg ONETIME ONE Administration Hydromorphone HCl 0.5 mg 11/13/17 20:59 11/13/17 21:09 Dilaudid IVPUSH 11/13/17 21:00 0.5 mg ONETIME ONE Administration Hydromorphone HCl 0 mg 11/14/17 00:09 11/14/17 00:45 Dilaudid Guide Delegate 15 Mg In Ns 30 Ml IV 15 mg ASDIRECTED PRN Administration Pain Protocol Hydroxyzine HCl 100 mg 11/14/17 09:30 11/14/17 13:18 Vistaril IM 11/14/17 09:31 Not Given ONETIME ONE Hydroxyzine HCl 100 mg 11/14/17 09:30 Vistaril IM 11/14/17 09:31 .STK-MED ONE Sodium Chloride 1,000 mls @ 999 mls/hr 11/13/17 21:00 11/13/17 21:08 Normal Saline IV 999 mls/hr ASDIRECTED JOSEPH Administration Sodium Chloride 80 mls @ 3 mls/sec 11/13/17 21:30 11/13/17 21:38 Normal Saline IV 3 mls/sec ASDIRECTED JOSEPH Administration Piperacillin Sod/Tazobactam 100 mls @ 200 mls/hr 11/13/17 23:55 11/14/17 00: 07 Sod 4.5 gm/ Sodium Chloride IV 200 mls/hr Q8H JOSEPH Administration Promethazine HCl 12.5 mg/ 50.5 mls @ 200 mls/hr 11/13/17 23:04 Sodium Chloride IV Q8H PRN Nausea/Vomiting Sodium Chloride 1,000 mls @ 125 mls/hr 11/13/17 23:15 11/14/17 08:10 Normal Saline IV 125 mls/hr ASDIRECTED JOSEPH Administration Piperacillin/Tazobactam/ 100 mls @ 200 mls/hr 11/14/17 08:00 11/14/17 15:48 Dextrose 4.5 gm/ Premix IV 200 mls/hr Q8H JOSEPH Administration Iopamidol 150 ml 11/13/17 21:30 11/13/17 21:38 Isovue-300 (61%) IV 150 ml . DIRECTED JOSEPH Administration Morphine Sulfate 1 - 3 mg 11/13/17 23:09 Morphine IVPUSH Q1H PRN Pain Naloxone HCl 0.4 mg 11/14/17 00:09 Narcan IVPUSH Q2M PRN Respiratory Distress Neostigmine Methylsulfate Confirm 11/14/17 07:20 Neostigmine Administered 11/14/17 07:21 Dose 5 mg .ROUTE .STK-MED ONE Ondansetron HCl 4 mg 11/13/17 20:58 11/13/17 21:09 Zofran IVPUSH 11/13/17 20:59 4 mg ONETIME ONE Administration Ondansetron HCl 4 mg 11/13/17 23:15 11/14/17 00:31 Zofran IVPUSH 4 mg Q8H JOSEPH Administration Ondansetron HCl 4 mg 11/14/17 08:00 Zofran IVPUSH Q8H JOSEPH Ondansetron HCl 4 mg 11/14/17 08:00 11/14/17 15:06 Zofran IVPUSH Not Given 0800,1500,2300 [facility] Ondansetron HCl Confirm 11/14/17 07:20 Zofran Administered 11/14/17 07:21 Dose 4 mg .ROUTE .STK-MED ONE Propofol Confirm 11/14/17 07:20 Diprivan 20 Ml Administered 11/14/17 07:21 Dose 200 mg .ROUTE .STK-MED ONE Rocuronium [place] Confirm 11/14/17 07:20 Zemuron Administered 11/14/17 07:21 Dose 50 mg .ROUTE .STK-MED ONE Scopolamine 1.5 mg 11/13/17 23:03 Transderm-Scop TRDERM Q72H PRN Nausea Sodium Chloride 10 ml 11/13/17 21:20 11/13/17 21:38 Saline Flush FLUSH 10 ml ASDIRECTED PRN Administration Keep Vein Open Succinylcholine Chloride Confirm 11/14/17 07:20 Quelicin Administered 11/14/17 07:21 Dose 200 mg .ROUTE .STK-MED ONE Sugammadex Sodium Confirm 11/14/17 09:08 Bridion Administered 11/14/17 09:09 Dose 200 mg .ROUTE .STK-MED ONE - Re-Assessments/Exams Free Text/Narrative Re-Assessment/Exam: 11/13/17 21:06 pt was found to have a elevated wbc. She is very tender in the rt lower abdoman. A cat scan of the abdoman was obtained. crp was 1.oo11/13/17 21:56 11/13/17 22:06 cat scan shows acute appendicitis 11/15/17 07:37 Departure - Departure Time of Disposition: 22:06 Disposition: Admitted As Inpatient 68 Condition: Fair Clinical Impression: Acute appendicitis - Discharge Information
[2017-11-13] MEDS ORDERED: Sodium Chloride 0.9% 10 ML Syringe FLUSH PRN (21:20)
[2017-11-13] MEDS ORDERED: Sodium Chloride 0.9% 80 ML IV SCH (21:30)
[2017-11-13] MEDS ORDERED: Iopamidol 612 MG/ML 150 ML Bottle IV SCH (21:30)
[2017-11-13] MEDS ORDERED: Scopolamine 1.5 MG Transdermal Patch TRDERM PRN (23:03)
[2017-11-13] MEDS ORDERED: Promethazine 12.5 MG in Sodium Chloride 0.9% 50 ML IV PRN (23:04)
[2017-11-13] MEDS ORDERED: diphenhydrAMINE 50 MG/ML SDV IVPUSH PRN (23:06)
[2017-11-13] MEDS ORDERED: diphenhydrAMINE 25 MG Cap PO PRN (23:07)
[2017-11-13] MEDS ORDERED: Morphine 4 MG/ML Syringe IVPUSH PRN (23:09)
[2017-11-13] MEDS ORDERED: fentaNYL 100 MCG/2 ML SDV IVPUSH PRN (23:10)
[2017-11-13] MEDS ORDERED: Ondansetron 4 MG/2 ML SDV IVPUSH SCH (23:15)
[2017-11-13] MEDS: Sodium Chloride 0.9% 1,000 ML IV SCH (23:36)
[2017-11-13] MEDS ORDERED: Piperacillin/Tazobactam 4.5 GM in Sodium Chloride 0.9% 100 ML IV SCH (23:55)
[2017-11-14] MEDS ORDERED: HYDROmorphone/Normal Saline 15 MG/30 ML PCA IV PRN (00:09)
[2017-11-14] MEDS ORDERED: Naloxone 0.4 MG/ML SDV IVPUSH PRN (00:09)
[2017-11-14] MEDS ORDERED: Bupivacaine 0.5% 50 ML MDV ONE (07:08)
[2017-11-14] MEDS ORDERED: fentaNYL 250 MCG/5 ML SDV ONE (07:19)
[2017-11-14] MEDS ORDERED: Rocuronium 50 MG/5 ML Vial ONE (07:20)
[2017-11-14] MEDS ORDERED: Dexamethasone 4 MG/ML SDV ONE (07:20)
[2017-11-14] MEDS ORDERED: Glycopyrrolate 0.2 MG/ML 5 ML MDV ONE (07:20)
[2017-11-14] MEDS ORDERED: Neostigmine Methylsulfate 1 MG/ML 5 ML Syringe ONE (07:20)
[2017-11-14] MEDS ORDERED: Ondansetron 4 MG/2 ML SDV ONE (07:20)
[2017-11-14] MEDS ORDERED: Propofol 200 MG/20 ML SDV ONE (07:20)
[2017-11-14] MEDS ORDERED: Succinylcholine 200 MG/10 ML MDV ONE (07:20)
[2017-11-14] MEDS ORDERED: Ondansetron 4 MG/2 ML SDV IVPUSH SCH (08:00)
[2017-11-14] MEDS ORDERED: Piperacillin/Tazobactam 4.5 GM in Sodium Chloride 0.9% 100 ML IV SCH (08:00)
[2017-11-14] MEDS: Sodium Chloride 0.9% 1,000 ML IV SCH (08:10)
[2017-11-14] MEDS ORDERED: Sugammadex Sodium 200 MG/2 ML VIAL ONE (09:08)
[2017-11-14] MEDS: hydrOXYzine HCl 100 MG/2 ML SDV IM ONE ×2 (09:24→13:18)
[2017-11-14] MEDS ORDERED: hydrOXYzine HCl 100 MG/2 ML SDV IM ONE (09:30)
[2017-11-14] MEDS: Ondansetron 4 MG/2 ML SDV IVPUSH SCH ×3 (10:58→15:06)
[2017-11-14] MEDS: Piperacillin/Tazobactam/Dext 4.5 GM in Premix Bag 1 BAG IV SCH ×3 (11:00→15:48)
--- NOTE | 2017-11-14 11:17 | PN ---
DATE OF SERVICE: 11/14/2017 SUBJECTIVE: The patient is doing well today. Pain controlled. No nausea, vomiting, shortness of breath, or chest pain. OBJECTIVE: VITAL SIGNS: Stable. CARDIOVASCULAR: Regular rhythm and rate. RESPIRATORY: Lungs are clear to auscultation bilaterally. ABDOMEN: Still pain with palpation. ASSESSMENT AND PLAN: To the operating room this morning for laparoscopic appendectomy. We again reviewed the risks, benefits, alternatives, and limitations. Samy Márquez MD /[id number]
--- NOTE | 2017-11-14 11:22 | OR ---
DATE OF PROCEDURE: 11/14/2017 PROCEDURE: Laparoscopic appendectomy. FINDINGS: Appendicitis, non-ruptured. PREOP DIAGNOSIS: Acute appendicitis. POSTOP DIAGNOSIS: Acute appendicitis. COMPLICATIONS: None. SLURRY CONTROL OPERATOR HELPER: None. ANESTHESIA: General/local. INDICATIONS: A 32-year-old female with right lower quadrant abdominal pain, who was admitted by myself last night requiring appendectomy. RISKS: Risks, benefits, alternatives, and limitations including, but not limited to infection, bleeding, perforation, injury to abdominal structures, and the possibility of open surgery were all explained to the patient and wished to proceed. PROCEDURE IN DETAIL: The patient was placed in supine position. A supraumbilical curvilinear incision was made. A Veress needle was used to enter the abdomen without abnormality. A drop test was performed without abnormality. The abdomen was subsequently insufflated. The Optiview trocar was used to enter. No evidence of enterotomy or injury was noted. Two additional 5 mm ports were entered under direct visualization, right upper quadrant and right midline of abdomen. The appendix was readily identified. This was consistent with appendicitis, but no rupture or peritonitis. A carrero load stapler was used to transect the appendix and its associated mesentery. The abdomen was then thoroughly irrigated with 1 L of irrigation. No other abnormalities were noted. The wounds were irrigated and closed with 3-0 Vicryl and 4-0 Vicryl interrupted running fashion. Dermabond was applied. The patient tolerated the procedure well. Samy Márquez MD /[id number]
--- NOTE | 2017-11-14 12:44 | CONS ---
DATE OF SERVICE: 11/13/2017 REFERRING PHYSICIAN: CONSULTING PHYSICIAN: Samy Márquez MD REASON FOR CONSULTATION: Right lower quadrant abdominal pain. HISTORY OF PRESENT ILLNESS: This is a 32-year-old female, who has had a short-onset of right lower quadrant abdominal pain, mild nausea, no vomiting, shortness of breath, or chest pain. This is a new problem for her. Modified by a history of previous gallbladder surgery. PAST SURGICAL HISTORY: , cholecystectomy. PAST MEDICAL HISTORY: Reflux, cholecystitis. SOCIAL HISTORY: She is a local resident and presents with family today. FAMILY HISTORY: No family history of appendiceal carcinoma. REVIEW OF SYSTEMS: GENERAL: The patient is appropriate for her condition. HEENT: No symptoms. CARDIOVASCULAR: No history of myocardial infarction. RESPIRATORY: No history of shortness of breath. GASTROINTESTINAL: No gross abnormalities. GENITOURINARY: No dysuria. NEUROLOGIC: No changes. PSYCHIATRIC: No changes. The remainder of the systems reviewed and is negative. PHYSICAL EXAMINATION: VITAL SIGNS: Stable. GENERAL: The patient is resting comfortably. HEENT: Pupils are equal. NECK: Supple. CARDIOVASCULAR: Regular rhythm and rate. RESPIRATORY: Lungs are clear to auscultation bilaterally. ABDOMEN: Pain with palpation, right lower quadrant. No rebound. No guarding. EXTREMITIES: Full range of motion, strength 5/5. NEUROLOGIC: Oriented x3. IMAGING: I did review a CT scan, which showed appendicitis. ASSESSMENT: Appendicitis. PLAN: The patient will be taken to the operating room tomorrow morning for laparoscopic appendectomy. We discussed risks, benefits, alternatives, and limitations including, but not limited to infection, bleeding, and perforation of abdominal structures requiring open surgery and other risks not listed here. The patient understands these risks and wishes to proceed. Samy Márquez MD /[id number]
[2017-11-14] MEDS ORDERED: Acetaminophen/HYDROcodone 325-5 MG Tab PO PRN (13:08)
[2017-11-14 13:54] VITALS: BP 102/62
== END 2017-11-14 16:34 | disposition home or self-care (01) | DRG 343 ==
LOC: JP.ED 20:27 → JP.MS 22:25
PROVIDERS: ADMIT Surgery; ATTEND Surgery
PROC: 0DTJ4ZZ Resection of Appendix, Percutaneous Endoscopic Approach (ICD-10-PCS; principal; 2017-11-14)
DX: K37 Unspecified appendicitis (principal); R01.1 Cardiac murmur, unspecified; K21.9 Gastro-esophageal reflux disease without esophagitis; F17.200 Nicotine dependence, unspecified, uncomplicated; Z79.899 Other long term (current) drug therapy
CPT/HCPCS: 36415; 74177; 80053; 81001; 85025; 86140; 96361; 96372; 96374; 96375; 99285-25; C9399; J0330; J1100; J1170; J2405; J2543; J2704; J2710; J3010; J3410; J3490; J7030; J7050

== ENCOUNTER 2018-07-06 08:01 | Day surgery (SDC) | payer MEDICAID ==
[~2018-07-06 08:01] MED LIST: Acetaminophen 500 MG Tab PO ONE; Bupivacaine 0.5% 50 ML MDV ONE; Propofol 200 MG/20 ML SDV ONE; fentaNYL 250 MCG/5 ML SDV ONE
[2018-07-06] MEDS ORDERED: Sodium Chloride 0.9% 1,000 ML IV SCH (08:30)
[2018-07-06] MEDS ORDERED: ceFAZolin 1 GM in Premix Bag 1 BAG IV ONE ×2 (09:00→10:00)
[2018-07-06] MEDS ORDERED: Neostigmine Methylsulfate 1 MG/ML 5 ML Syringe ONE (09:58)
[2018-07-06] MEDS ORDERED: Glycopyrrolate 0.2 MG/ML 5 ML MDV ONE (09:58)
[2018-07-06] MEDS ORDERED: Rocuronium 50 MG/5 ML Vial ONE (09:58)
[2018-07-06] MEDS ORDERED: Ondansetron 4 MG/2 ML SDV ONE (09:58)
[2018-07-06] MEDS ORDERED: Succinylcholine 200 MG/10 ML MDV ONE (09:58)
[2018-07-06] MEDS ORDERED: Dexamethasone 4 MG/ML SDV ONE (09:58)
[2018-07-06] MEDS ORDERED: fentaNYL 250 MCG/5 ML SDV ONE (10:43)
[2018-07-06] MEDS ORDERED: Lactated Ringers 1,000 ML ONE (11:32)
[2018-07-06] MEDS ORDERED: Ketorolac 60 MG/2 ML SDV IM ONE (13:11)
[2018-07-06] MEDS ORDERED: Morphine 2 MG/ML Syringe IVPUSH ONE (13:11)
[2018-07-06] MEDS ORDERED: Acetaminophen/HYDROcodone 325-5 MG Tab PO PRN (14:15)
[2018-07-06 14:33] VITALS: BP 124/73
--- NOTE | 2018-07-06 14:57 | PCM.OPNOTE ---
- General Post-Op/Procedure Note Date of Surgery/Procedure: 07/06/18 Operative Procedure(s): Arthroscopically assisted ACL revision left knee Findings: Failed ACL graft left knee. Pre Op Diagnosis: Failed ACL graft left knee Post-Op Diagnosis: Failed ACL graft left knee. Anesthesia Technique: General ET Tube Primary Surgeon: Mark Anthony SOSA in mLs: 50 Complications: None Condition: Good Free Text/Narrative:: Intake & Output 07/05/18 07/06/18 07/06/18 22:59 06:59 14:59 Intake Total 100 Balance 100 Indications: Lidya is a 33-year-old female with a history of previous ACL reconstruction with allograft tendon. She has been having symptoms of instability. She also had recent surgery for a bucket handle tear of the medial meniscus. This was a chronic tear displaced into the notch. This was providing some constraint for the graft. Unfortunately this was not repairable. Since she has had this resected she has noticed increased instability and pain. At the time of the meniscectomy the ACL was noted to be stretched out and nonfunctional. We had not made arrangements for ACL revision at that time so she returns today for revision surgery. Risks, benefits and potential complications were discussed. She agrees to proceed. Procedure: After adequate anesthesia was obtained and preoperative antibiotics administered the left leg was prepped and draped in a sterile fashion. The leg was exsanguinated and tourniquet inflated to 300 mg of mercury pressure. Attention was first turned to the tibial tunnel. Previous scar medial to the tibial tubercle was resected. Dissection carried down to the tunnel. The interference screw was somewhat proud working its way out accounting for some of her pain. This was cleared and removed easily. The 2 sheaths from the Aper- Fix system were dissected free from the soft tissues and removed. A combination of curette and rongeur was used to remove remaining soft tissue. Port sites were then established and scope was introduced in the knee. The lax tendon graft was identified and debrided with the shaver. The insertion site into the femur was cleared of tissue with a combination of shaver and a curette. The metal expansion pin for the Aper-Fix device was identified and backed out. Attempts were made to free the Apert-Fix from the femoral tunnel. However this was scarred in and the device could not be removed en bloc. A new tibial tunnel was created using the tibial guide set at 55. This provided a tunnel more inferior and at a different angle than her previous tunnel. This was drilled to a 10 mm. Soft tissues were cleared from the origin of the tunnel. The longer guide pin was then directed through the tibial tunnel and into the area of the femoral tunnel and brought out through the anterior cortex in the skin. 8 mm reamer was placed over the pin clearing soft tissues and a portion of the fixation device. Fragments of the device were removed with a ronguer and shaver. The remaining portion of the device was visualized in the tunnel. Long guide pin was removed and an attempt was made to grasp the device. It was firmly fixed within the femur and could not be removed in one piece. Guide pin was reinserted and the 8 mm reamer placed over the pin and used to break up the morning remaining portion of the device. Fragments were then removed. The tunnel was then drilled with a 10 mm reamer. This did not have adequate purchase in the femur and this was then drilled again with an 11 mm reamer which provided a better bone tunnel. A [id number]-[id number]-cxgswx tubercle allograft was thawed and then prepared on the back table with 11 mm diameter bone plugs on each end. The bone plug for the femoral tunnel was left at 35 mm. The tibial tunnel was redrilled with an 11 mm reamer. The 11 mm rigid fix guide was then placed over the pin and into the femoral tunnel. This was visualized with the scope and sunk to a depth of 35 mm. The guide cannulas were then drilled into the lateral femoral cortex. The guide was removed. Guide sutures placed through the femoral tunnel bone plug were then placed through the eyelet of the guidepin. This was then pulled up through the tibial tunnel and femoral tunnel and out the skin anteriorly. The ortho-cord sutures were then used to pull the graft into position into the femoral tunnel. Position was confirmed with the scope. Light tension was kept on the sutures and drill was placed through the guide cannulas and across the graft. Transfixing pins were then tapped into position. Tension was placed on the graft and no motion of the plug in the femoral tunnel was noted. The knee was then cycled through several positions of flexion and extension tensioning the graft. A guidepin was placed into the tibial tunnel. A tap was placed over this. A 10 x 23 mm Yoli interference screw was then placed. Good purchase was obtained in the tunnel. Graft was inspected with the scope. Showed no impingement in the notch. Full extension was obtained. Examination of the knee showed a negative Estela and negative drawer. All bony fragments and fragments of the fixation devices were removed. Knee was drained and the scope was withdrawn. Guide sutures were removed. Remaining portion of 5 graft from the tibial tubercle was used to bone graft the previous tibial tunnel. Portion of the new tibial tunnel was also grafted over the locking screw. Wound is irrigated. Fascia was closed over the tibial tunnels. It was then closed with 2- 0 Vicryl in a running 3-0 Monocryl. Port sites were closed with 3-0 Monocryl. Steri-Strips were applied. Incisions and the knee were then injected with Marcaine. Sterile dressing was applied. Leg was then placed into a postoperative brace locked at 10 of flexion. Patient tolerated the procedure well and there were no complications and she was taken from the operating room in stable condition.
== END 2018-07-06 15:13 | disposition home or self-care (01) ==
LOC: JP.SDS 08:01
PROVIDERS: ATTEND Specialist
DX: T84.490A Other mechanical complication of muscle and tendon graft, initial encounter (principal); S83.512A Sprain of anterior cruciate ligament of left knee, initial encounter; E66.9 Obesity, unspecified; F17.200 Nicotine dependence, unspecified, uncomplicated; K21.9 Gastro-esophageal reflux disease without esophagitis; M79.7 Fibromyalgia; X58.XXXA Exposure to other specified factors, initial encounter
CPT/HCPCS: 29888; A9270; J0330; J0690; J1100; J1885; J2270; J2405; J2704; J2710; J3010; J3490; J7030; J7120

== ENCOUNTER 2019-05-24 10:11 | Day surgery (SDC) | payer MEDICAID ==
[2019-05-24] MEDS ORDERED: Lactated Ringers 1,000 ML IV SCH (10:30)
[2019-05-24] MEDS ORDERED: Bupivacaine 0.5% 50 ML MDV ONE ×2 (10:56→10:59)
[2019-05-24] MEDS ORDERED: Lidocaine 1% with EPINEPHrine 1:100,000 50 ML MDV ONE (10:56)
[2019-05-24] MEDS ORDERED: Lidocaine 2% 20 ML MDV ONE (10:59)
[2019-05-24] MEDS ORDERED: ceFAZolin 2 GM in Premix Bag 1 BAG IV ONE (11:00)
[2019-05-24] MEDS ORDERED: Propofol 200 MG/20 ML SDV ONE ×2 (12:13→12:24)
[2019-05-24] MEDS ORDERED: fentaNYL 100 MCG/2 ML SDV ONE (12:13)
[2019-05-24] MEDS ORDERED: Midazolam 1 MG/ML 2 ML SDV ONE (12:13)
[2019-05-24] MEDS ORDERED: Acetaminophen/HYDROcodone 325-5 MG Tab PO ONE (13:35)
[2019-05-24 13:53] VITALS: BP 109/69; PULSE 69
--- NOTE | 2019-05-24 15:23 | OR ---
DATE OF PROCEDURE: 05/24/2019 SURGEON: Mio Mclain DPM AD TRAFFICKER: None. PREOPERATIVE DIAGNOSIS: Mass on the dorsolateral aspect of the right foot. POSTOPERATIVE DIAGNOSIS: Mass on the dorsolateral aspect of the right foot. PROCEDURE: Excision of mass on the dorsolateral aspect of the right foot. ANESTHESIA: Local with IV sedation. HEMOSTASIS: Obtained with an ankle tourniquet on the right ankle at 250 mmHg. ESTIMATED BLOOD LOSS: 5 mL. MATERIALS: None. INJECTABLES: A total of 10 mL of a 1:1 mixture of lidocaine 2% plain and Marcaine 0.5% plain was injected preoperatively. Intraoperatively, a total of 10 mL of Marcaine 0.5% plain was injected. PATHOLOGY: Mass was sent. CONDITION: Stable. INDICATIONS FOR SURGERY: Painful mass on the dorsolateral aspect of the right foot that was unresponsive to conservative measures. PROCEDURE IN DETAIL: The patient was brought into the operating room and placed on the operating table in supine position. Following IV sedation, anesthesia was obtained with a total of 10 mL of a 1:1 mixture of lidocaine 2% plain and Marcaine 0.5% plain. The right foot was then scrubbed, prepped, and draped in usual aseptic manner and raised to 60 degrees for hemostasis and exsanguinated using Esmarch bandage. Tourniquet was inflated. Foot was lowered to table. Skin incision was made on the dorsolateral aspect of the right foot, superficial to the mass, into the palpable mass. Incisions were then carried through subcutaneous tissues. The mass was located and was carefully excised. It was ruptured during the excision and clear straw-colored viscous fluid came out. There was no purulence and no malodor. No signs of infection. The mass was carefully excised to remove all portions of the mass. Then, the area, where the mass had been, was cauterized in order to reduce chances of recurrence of the mass. The incision then was flushed out with copious amounts of sterile saline. Subcutaneous closure was done with 3-0 Vicryl in a box-stitch type incision and nylon was used to close the skin in a horizontal mattress-type configuration. Then, the incision was dressed with Xeroform, 4x4s, Kerlix, and Coban. The patient was returned to the recovery room with vital signs stable and vascular status intact to both feet. The patient was told to maintain nonweightbearing for two weeks and wear a CAM boot and to return to clinic for followup in one week, at which time, she will be re-evaluated, but to call prior to that if she had any other questions or concerns. The patient was agreeable to this. The patient was told to go to the emergency room immediately if she has any nausea, vomiting, fever, chills, chest pain, calf pain, or difficulty breathing. Mio Mclain DPM /[id number]
== END 2019-05-24 14:42 | disposition home or self-care (01) ==
LOC: JP.SDS 10:11
PROVIDERS: ATTEND Podiatrist Foot & Ankle Surgery
DX: M67.471 Ganglion, right ankle and foot (principal); K21.9 Gastro-esophageal reflux disease without esophagitis; E78.5 Hyperlipidemia, unspecified; F17.210 Nicotine dependence, cigarettes, uncomplicated; E66.9 Obesity, unspecified; Z68.36 Body mass index [BMI] 36.0-36.9, adult
CPT/HCPCS: 81025; A9270-GY; J0690; J2001; J2250; J2704; J3010; J3490; J7120

== ENCOUNTER 2023-11-19 15:29 | Emergency (ER) | payer MEDICAID ==
[2023-11-19 17:14] VITALS: BP 138/81; PULSE 80
== END 2023-11-19 18:12 | disposition home or self-care (01) ==
LOC: JP.ED 15:29
DX: K08.89 Other specified disorders of teeth and supporting structures (principal); F17.210 Nicotine dependence, cigarettes, uncomplicated; Z91.040 Latex allergy status; Z79.899 Other long term (current) drug therapy; K21.9 Gastro-esophageal reflux disease without esophagitis; Z90.49 Acquired absence of other specified parts of digestive tract
CPT/HCPCS: 99282

== ENCOUNTER 2025-01-10 07:50 | Day surgery (SDC) | payer MEDICAID ==
[~2025-01-10 07:50] MED LIST changes: -Acetaminophen 500 MG Tab PO ONE; -Bupivacaine 0.5% 50 ML MDV ONE; +Lactated Ringers 1,000 ML IV SCH; +Midazolam 1 MG/ML 2 ML SDV ONE; +fentaNYL 100 MCG/2 ML SDV ONE; -fentaNYL 250 MCG/5 ML SDV ONE
[2025-01-10] MEDS: Lactated Ringers 1,000 ML IV SCH (08:23)
[2025-01-10 11:22] VITALS: BP 99/67; PULSE 70
== END 2025-01-10 11:30 | disposition home or self-care (01) ==
LOC: JP.SDS 07:50
PROVIDERS: ATTEND Surgery
DX: K22.89 Other specified disease of esophagus (principal); E66.9 Obesity, unspecified; E11.9 Type 2 diabetes mellitus without complications; F17.210 Nicotine dependence, cigarettes, uncomplicated; Z91.040 Latex allergy status; Z91.018 Allergy to other foods
CPT/HCPCS: 00731; 43239; 81025; J2250; J2704; J3010; J7120

== ENCOUNTER 2025-01-20 17:51 | Emergency (ER) | payer MEDICAID ==
[2025-01-20 18:27] VITALS: BP 126/79; PULSE 95
[2025-01-20] MEDS: Ketorolac 30 MG/ML SDV IM ONE (19:55)
== END 2025-01-20 20:10 | disposition home or self-care (01) ==
LOC: JP.ED 17:51
DX: K08.89 Other specified disorders of teeth and supporting structures (principal); F17.200 Nicotine dependence, unspecified, uncomplicated; E11.9 Type 2 diabetes mellitus without complications; Z91.040 Latex allergy status; Z88.8 Allergy status to other drugs, medicaments and biological substances; Z90.49 Acquired absence of other specified parts of digestive tract
CPT/HCPCS: 96372; 99282; J1885